=== PATIENT | female | born 1960 | race Caucasian/White ===

== ENCOUNTER 2016-08-22 07:48 | Emergency (ER) | payer MEDICARE, BC | END 2016-08-22 11:28 | disposition home or self-care (01) | LOC: ER 07:48 | DX: R07.89 Other chest pain (principal); I16.0 Hypertensive urgency; R59.9 Enlarged lymph nodes, unspecified; J44.9 Chronic obstructive pulmonary disease, unspecified; E03.9 Hypothyroidism, unspecified; Z85.42 Personal history of malignant neoplasm of other parts of uterus; Z90.710 Acquired absence of both cervix and uterus; Z90.49 Acquired absence of other specified parts of digestive tract | CPT/HCPCS: 36415; 96360; 96361; Q9967 ==